=== PATIENT | female | born 1995 | race Caucasian/White ===

== ENCOUNTER 2023-02-25 15:07 | Outpatient (CLI) | payer MEDICAID, SELFPAY ==
--- NOTE | 2023-02-25 | DI.US_ITS ---
Exam(s) US OB 1ST TRIMESTER EXAM: US OB 1ST TRIMESTER CLINICAL HISTORY: ,Z32.01,EARLY COMPLICATIONS,? ECTOPIC. COMPARISON: No exams were available for comparison TECHNIQUE: Transabdominal Transvaginal first trimester obstetrical ultrasound performed. FINDINGS: Sonographic images demonstrate a cystic structure within the endometrium which could be a gestational sac. Based on gestational sac measurements, the age would be less than 5 weeks. A yolk sac and pole are not seen at this time. There is a small amount of free fluid in the cul-de-sac. Pelvic Measurments Uterus: 10 x 5.8 x 8.2 cm The endometrial stripe is thickened and mildly heterogeneous. There are few smaller anechoic spaces within the endometrial stripe. Rt Ovary: 2.6 x 1.5 x 2.8 cm Lt Ovary: 3.3 x 2 x 2.4 cm Both ovaries appear sonographically normal. There is blood flow seen to both ovaries. No adnexal masses are seen. IMPRESSION: 1. There appears to be an intrauterine gestational sac. Based on the sac size, the age is less than 5 weeks. Please correlate with the patient's beta HCG levels. A follow-up obstetrical ultrasound in 1-2 weeks is recommended to assess viability. 2. Small amount of free fluid in the pelvis. 3. No evidence of an adnexal mass. DATA REPOSITORY:
== END 2023-02-25 15:27 ==
PROVIDERS: Visit Provider Advanced Practice Midwife
DX: Z36.87 Encounter for antenatal screening for uncertain dates (principal)
CPT/HCPCS: 76801

== ENCOUNTER 2023-07-04 16:43 | Emergency (ER) | payer MEDICAID, SELFPAY ==
[2023-07-04] VITALS (24 sets, daily range): BP systolic 85–140; BP diastolic 32–76; PULSE 59–87; RESP 12–28; TEMP 36.9–37.2; O2SAT 98–100
[2023-07-04] MEDS: Normal Saline 1,000 ML 1000 ML IV (17:17)
[2023-07-04] MEDS: Ondansetron 4 MG/2 ML VIAL IVP (17:18)
[2023-07-04 17:25] LABS: Abs Immature Grans 0.02 10^3/uL (0.0-0.06); Absolute Basophil Count 0.03 10^3/uL (0.0-0.2); Absolute Eosinophil Count 0.05 10^3/uL (0.0-0.7); Absolute Lymphocyte Count 1.29 10^3/uL (1.2-3.4); Absolute Monocyte Count 0.67 10^3/uL (0.1-0.8); Absolute Neutrophil Count 4.11 10^3/uL (1.2-6.7); Basophils % 0.5; Eosinophils % 0.8; HCT 33.7 % (36.0-46.0); HGB 11.2 g/dL (11.2-15.7); Immature Grans % 0.3; Lymphocytes % 20.9; MCH 26.7 pg (27.0-33.0); MCHC 33.2 % (32.0-36.0); MCV 80 fL (80-95); MPV 9.3 fL (8.0-11.0); Monocytes % 10.9; Neutrophils % 66.6; Platelet Count 185 10^3/uL (130-400); RDW 12.9 % (11.7-14.6); RDW-SD 36.8 fL; WBC 6.17 10^3/uL (4.4-10.8)
[2023-07-04 17:45] LABS: ALT 15 U/L (14-59); AST 15 U/L (15-37); Albumin 2.8 g/dL (3.4-5.0); Alkaline Phosphatase 82 U/L (46-116); Anion Gap 10.2 mmol/L (3-11); BUN 5 mg/dL (7-18); Bilirubin, Total 0.2 mg/dL (0.2-1.0); CO2 23.8 mmol/L (21.0-32.0); CREATININE 0.6 mg/dL (0.55-1.02); Chloride 103 mmol/L (98-107); Estimated GFR 126.87 (mL/min/1.73m2); Glucose 90 mg/dL (74-106); Magnesium 1.7 mg/dL (1.8-2.4); Potassium 3.5 mmol/L (3.5-5.1); Sodium 137 mmol/L (136-145); Total Protein 6.7 g/dL (6.4-8.2)
--- NOTE | 2023-07-04 18:50 | W.ED.GENAD ---
Discharge Plan Disposition Patient Disposition: Home Condition: Good Discharge Details Clinical Impression: Vomiting affecting Primary Care Provider: Unknown,Unknown ED Provider: Deedee Moya Home Meds and New Rx's Prescriptions: New ondansetron 4 mg tablet,disintegrating 4 mg PO Q8H PRNQty: 6 0RF No Action 1 mg Tablet 1 tab PO DAILY Discharge Instructions Instructions: Acute Nausea and Vomiting (ED) Additional Instructions: You can take zofran up to every 8 hours as needed for vomiting. Call your primary care doctor tomorrow to schedule an appointment to follow up on your visit today. Call your VENDING MACHINE REPAIRER tomorrow to check in and discuss your visit to the ED. Return to the emergency department for new or worsening symptoms, including inability to keep down fluids, lightheadedness, decreased movement, or if you have any other concerns. Medical Decision Making 27yo previously healthy female 23w gestation levy uncomplicated follows with [facility] VENDING MACHINE REPAIRER presenting for acute nausea vomiting; 30 minutes prior to arrival felt nauseated and then vomited three times in a row, the last time with streaks of bright red blood. Vital signs and physical exam reassuring on arrival, no abdominal or uterine tenderness. FHR 150's. Low suspicion for acute intrabdominal process, would not pursue imaging at this time given reassuring exam. Reassuring FHT, vomiting for less than a hour, no indication for non-stress testing. Given 1L IVFB and IV zofran. Labs reviewed as below, CBC & CMP reassuring, slightly low magnesium. PO challenged; on reassessment well appearing with reassuring vital signs, has tolerated PO. Appropriate for discharge home to followup with PCP. Discharged home; discharge instructions including return precautions were reviewed with patient who verbalized understanding. All questions were answered and they are in full agreement with the plan. Lab Data Lab results reviewed: Yes I reviewed the patient's lab results. Labs: Laboratory Tests Range/Units 07/04/23 07/04/23 17:10 17:10 WBC (4.4-10.8) 10^3/uL 6.17 RBC (3.93-5.22) 10^6/uL 4.20 Hgb (11.2-15.7) g/dL 11.2 Hct (36.0-46.0) % 33.7 L MCV (80-95) fL 80 MCH (27.0-33.0) pg 26.7 L MCHC (32.0-36.0) % 33.2 RDW (11.7-14.6) % 12.9 Plt Count (130-400) 10^3/uL 185 MPV (8.0-11.0) fL 9.3 Immature Gran % 0.3 Neutrophils % 66.6 Lymphocytes % 20.9 Monocytes % 10.9 Eosinophils % 0.8 Basophils % 0.5 Nucleated RBC % (0.0-0.3) % 0.0 Absolute Neutrophils (1.2-6.7) 10^3/uL 4.11 Absolute Lymphocytes (1.2-3.4) 10^3/uL 1.29 Absolute Monocytes (0.1-0.8) 10^3/uL 0.67 Absolute Eosinophils (0.0-0.7) 10^3/uL 0.05 Absolute Basophils (0.0-0.2) 10^3/uL 0.03 Sodium (136-145) mmol/L 137 Potassium (3.5-5.1) mmol/L 3.5 Chloride (98-107) mmol/L 103 Carbon Dioxide (21.0-32.0) mmol/L 23.8 Anion Gap (3-11) mmol/L 10.2 BUN (7-18) mg/dL 5 L Creatinine (0.55-1.02) mg/dL 0.6 Est GFR (CKD-EPI 2020) (mL/min/1.73m2) 126.87 Glucose (74-106) mg/dL 90 Calcium (8.5-10.1) mg/dL 9.0 Magnesium (1.8-2.4) mg/dL 1.7 L Total Bilirubin (0.2-1.0) mg/dL 0.2 AST (15-37) U/L 15 ALT (14-59) U/L 15 Alkaline Phosphatase (46-116) U/L 82 Total Protein (6.4-8.2) g/dL 6.7 Albumin (3.4-5.0) g/dL 2.8 L HPI General Date/Time Provider Initiated Documentation: 07/04/23 16:48. Limitations to Documentation: no limitations. Information obtained by: patient. HPI Narrative: 27yo previously healthy female 23w gestation levy unocomplicated follows with [facility] VENDING MACHINE REPAIRER presenting for acute nausea vomiting. 30 minutes prior to arrival felt nauseated and then vomited three times in a row, the last time with streaks of bright red blood. No abdominal pain. Bagel for breakfast and spaghetti for lunch. No vaginal bleeding or leaking, no uterine contractions. Feeling the baby move, no change in movement. She is otherwise in her usual state of health with no fevers, chills, rash, chest pain, dysuria, hematuria, or other concerns. Related Data Home Medications Medication Instructions Recorded Confirmed ondansetron 4 mg disintegrating 4 mg PO Q8H PRN #6 tabs 07/04/23 tablet [id number] 1 mg 1 tab PO DAILY 07/04/23 07/04/23 tablet Previous Rx's Medication Instructions Recorded ondansetron 4 mg disintegrating 4 mg PO Q8H PRN #6 tabs 07/04/23 tablet Allergies Allergy/AdvReac Type Severity Reaction Status Date / Time Penicillins Allergy Hives Unverified 07/04/23 16:51 Sulfa (Sulfonamide Allergy Hives Unverified 07/04/23 16:51 Antibiotics) General Stated Complaint: Nausea/Vomit/Diar AIDE: 3 Review of Systems Narrative: see HPI PFSH All Active Problems (Updated 07/04/23 @ 19:34 by Deedee Moya MD) Vomiting affecting (Acute) Social History Smoking/Tobacco Use Status: Never Smoking risk assessment performed?: Yes Alcohol Intake: never Drug use: Never Substance use type: does not use Housing: house Do you feel safe at home: Yes Do you feel safe in your relationship?: Yes Exam Narrative Exam Narrative: General: Alert, well appearing, well nourished, tearful Head: Normocephalic, atraumatic Neck: Trachea midline, Neck supple. ENT: MMM. No oropharygeal lesions or exudate. Cardiac: RRR, no murmurs appreciated Resp: No respiratory distress. CTAB. Abd: Soft, non-distended, nontender. Gravid, fundus palpable 4cm about umbilicus, no contractions palpate. : No suprapubic tenderness. Extremities: No deformities. No peripheral edema. Neurologic: GCS 15. Moves all extremities freely against gravity Course Vital Signs Vital signs: Vital Signs Temperature 37.2 C 07/04/23 16:47 Pulse 87 07/04/23 16:47 Respiratory Rate 20 07/04/23 16:47 Blood Pressure 140/76 07/04/23 16:47 Pulse Oximetry 99 07/04/23 16:47 Temperature 37.2 C 07/04/23 16:47 Temperature Source Skin 07/04/23 16:47 Pulse 79 07/04/23 17:01 Pulse 84 07/04/23 17:40 Respiratory Rate 27 H 07/04/23 18:30 Respiratory Effort Normal, Non-Labored 07/04/23 16:52 Blood Pressure 119/53 L 07/04/23 17:01 Blood Pressure Mean 73 07/04/23 17:01 Blood Pressure Position Sitting 07/04/23 16:47 Pulse Oximetry 98 07/04/23 18:30 Oxygen Delivery Method Room Air 07/04/23 16:47 Oxygen Flow Rate 0 07/04/23 16:47 Pain Level 0 07/04/23 16:47 Lab/Test Results Lab/Test Results: Laboratory Tests Range/Units 07/04/23 07/04/23 17:10 17:10 WBC (4.4-10.8) 10^3/uL 6.17 RBC (3.93-5.22) 10^6/uL 4.20 Hgb (11.2-15.7) g/dL 11.2 Hct (36.0-46.0) % 33.7 L MCV (80-95) fL 80 MCH (27.0-33.0) pg 26.7 L MCHC (32.0-36.0) % 33.2 RDW (11.7-14.6) % 12.9 Plt Count (130-400) 10^3/uL 185 MPV (8.0-11.0) fL 9.3 Immature Gran % 0.3 Neutrophils % 66.6 Lymphocytes % 20.9 Monocytes % 10.9 Eosinophils % 0.8 Basophils % 0.5 Nucleated RBC % (0.0-0.3) % 0.0 Absolute Neutrophils (1.2-6.7) 10^3/uL 4.11 Absolute Lymphocytes (1.2-3.4) 10^3/uL 1.29 Absolute Monocytes (0.1-0.8) 10^3/uL 0.67 Absolute Eosinophils (0.0-0.7) 10^3/uL 0.05 Absolute Basophils (0.0-0.2) 10^3/uL 0.03 Sodium (136-145) mmol/L 137 Potassium (3.5-5.1) mmol/L 3.5 Chloride (98-107) mmol/L 103 Carbon Dioxide (21.0-32.0) mmol/L 23.8 Anion Gap (3-11) mmol/L 10.2 BUN (7-18) mg/dL 5 L Creatinine (0.55-1.02) mg/dL 0.6 Est GFR (CKD-EPI 2020) (mL/min/1.73m2) 126.87 Glucose (74-106) mg/dL 90 Calcium (8.5-10.1) mg/dL 9.0 Magnesium (1.8-2.4) mg/dL 1.7 L Total Bilirubin (0.2-1.0) mg/dL 0.2 AST (15-37) U/L 15 ALT (14-59) U/L 15 Alkaline Phosphatase (46-116) U/L 82 Total Protein (6.4-8.2) g/dL 6.7 Albumin (3.4-5.0) g/dL 2.8 L
== END 2023-07-04 19:58 | disposition home or self-care (01) ==
PROVIDERS: Emergency Provider Student in an Organized Health Care Education/Training Program
DX: O21.2 Late vomiting of pregnancy; Z3A.23 23 weeks gestation of pregnancy
CPT/HCPCS: 80053; 96361; 96374; 99284; 83735; 85025; J2405

== ENCOUNTER 2023-08-09 08:04 | Emergency (ER) | payer MEDICAID, SELFPAY ==
--- NOTE | 2023-08-09 08:00 | RT.EKG_ITS ---
APPROVED REPORT Exam: Resting ECG Reason for Exam: Chest pain Patient Location: E HR:85 bpm ECG Measurements Heart Rate 85 AXIS DC 100 P 40 QRSd 78 QRS 59 QT 349 T 17 QTc 415 Conclusion Sinus rhythm rate 85 normal axis no acute ischemic change
[2023-08-09 08:08] VITALS: BP 142/79; PULSE 91; RESP 18; TEMP 37.5; O2SAT 100
[2023-08-09 08:13] VITALS: RESP 20
--- NOTE | 2023-08-09 08:25 | ED.GENADUL_ITS ---
Discharge Plan Disposition Patient Disposition: Home Condition: Stable Discharge Details Clinical Impression: Back pain, Chest pain Primary Care Provider: Nic Jules ED Provider: Ronaldo Russell Home Meds and New Rx's Prescriptions: No Action 1 mg Tablet 1 tab PO DAILY ondansetron 4 mg tablet,disintegrating 4 mg PO Q8H PRNQty: 6 0RF Discharge Instructions Additional Instructions: continue tylenole as needed for pain please call today to schedule follow up appointment with OB return to ED with severe pain, cramping or bleeding. Medical Decision Making Emergent evaluation of chest and back pain during . Initial differential includes musculoskeletal pain, cardiomyopathy, less likely ACS, less likely aortic pathology. EKG: Sinus 85 normal axis, no acute ischemic changes no priors for comparison Initial plan for lab work, telemetry monitoring. Blood pressure slightly elevated, will continue to monitor and evaluate for preeclampsia. 0945: Reviewed the patient's lab work. She has no significant anemia, her electrolytes are stable. Her BNP is negative. Her troponin is negative. Using adjusted D-dimer the patient risk for PE or aortic pathology is not significant. She reports that her chest pain is resolved, she is still having some back pain. I recommend heat to this area. I have low suspicion that this is a symptom of labor. I recommend that she follow-up with her AIRPLANE INSPECTOR for further management given her stage of . Medical Records Medical records reviewed: Yes I reviewed the patient's medical records. Lab Data Lab results reviewed: Yes I reviewed the patient's lab results. ECG Data Attestation: I personally reviewed and interpreted this ECG (s) as follows: Prior ECG tracings: not available for review HPI General Date/Time Provider Initiated Documentation: 08/09/23 08:10 . Limitations to Documentation: no limitations . Information obtained by: patient . HPI Narrative: 27-year-old female G2, P1 at 29 weeks presents for evaluation of chest and back pain. She reports that she has been having back pain. Localizes to the lower back, does not radiate. She states that it has been intermittent but this morning it has been constant. She reports that she also started having chest pain this morning. She reports the pain feels like a pressure. She has some slight shortness of breath. The chest pain does not radiate to her back. She is not having any nausea or vomiting. She denies any abdominal cramping or pain. Denies any vaginal bleeding or discharge. Denies any dysuria. She reports that she has not had any complications during this . She is followed by [facility] [place]. Related Data Home Medications Medication Instructions Recorded Confirmed ondansetron 4 mg disintegrating 4 mg PO Q8H PRN #6 tabs 07/04/23 tablet [id number] 1 mg 1 tab PO DAILY 07/04/23 07/04/23 tablet Previous Rx's Medication Instructions Recorded ondansetron 4 mg disintegrating 4 mg PO Q8H PRN #6 tabs 07/04/23 tablet Allergies Allergy/AdvReac Type Severity Reaction Status Date / Time Penicillins Allergy Hives Unverified 07/04/23 16:51 Sulfa (Sulfonamide Allergy Hives Unverified 07/04/23 16:51 Antibiotics) General Stated Complaint: Chest Pain AIDE: 3 PFSH All Active Problems (Updated 08/09/23 @ 09:42 by Ronaldo Russell MD) Chest pain (Acute) Back pain (Acute) Social History Smoking/Tobacco Use Status: Never Smoking risk assessment performed?: Yes Alcohol Intake: never Drug use: Never Substance use type: does not use Housing: house Do you feel safe at home: Yes Do you feel safe in your relationship?: Yes Exam Narrative Exam Narrative: Review of Systems: All systems reviewed & are unremarkable except as noted in HPI and below: CONSTITUTIONAL: Alert and oriented Well-developed, tearful HEENT: NACT EYES: PERRL, no conjunctival injection NOSE nares patent MOUTH Moist MM NECK: Symmetric, trachea midline, No thyromegaly CVS: RRR, No murmurs or gallops. Peripheral pulses 2+ and equal in all extremities Brisk capillary refill in all extremities. No peripheral edema No chest wall tenderness RESP: Unlabored respiratory effort, Clear to auscultation bilaterally No wheezes rales or rhonchi GI: Soft, Nontender, gravid abdomen FH MSK: Extremities with full range of motion, no deformity or TTP SKIN: Warm, Dry. No rashes or lesions. NEURO: No focal neurologic deficits. Course Vital Signs Vital signs: Vital Signs Temperature 37.5 C 08/09/23 08:08 Pulse 91 H 08/09/23 08:08 Respiratory Rate 18 08/09/23 08:08 Blood Pressure 142/79 H 08/09/23 08:08 Pulse Oximetry 100 08/09/23 08:08 Temperature 37.5 C 08/09/23 08:08 Temperature Source Temporal Artery Scan 08/09/23 08:08 Pulse 91 H 08/09/23 08:08 Respiratory Rate 20 08/09/23 08:13 Respiratory Effort Short of Breath 08/09/23 08:13 Blood Pressure 142/79 H 08/09/23 08:08 Pulse Oximetry 100 08/09/23 08:08 Oxygen Delivery Method Room Air 08/09/23 08:08 Oxygen Flow Rate 0 08/09/23 08:08 Pain Level 8 08/09/23 08:08
[2023-08-09 08:30] LABS: Abs Immature Grans 0.04 10^3/uL (0.0-0.06); Absolute Basophil Count 0.03 10^3/uL (0.0-0.2); Absolute Eosinophil Count 0.08 10^3/uL (0.0-0.7); Absolute Lymphocyte Count 1.41 10^3/uL (1.2-3.4); Absolute Neutrophil Count 7.13 10^3/uL (1.2-6.7); Basophils % 0.3; Eosinophils % 0.9; HCT 34.9 % (36.0-46.0); HGB 11.6 g/dL (11.2-15.7); Immature Grans % 0.4; Lymphocytes % 15.2; MCH 26.4 pg (27.0-33.0); MCHC 33.2 % (32.0-36.0); MCV 80 fL (80-95); MPV 9.7 fL (8.0-11.0); Monocytes % 6.5; Neutrophils % 76.7; Platelet Count 187 10^3/uL (130-400); RBC 4.39 10^6/uL (3.93-5.22); RDW 12.7 % (11.7-14.6); RDW-SD 36.4 fL; WBC 9.29 10^3/uL (4.4-10.8)
[2023-08-09 08:52] LABS: Bilirubin Negative (Negative); Blood Negative (Negative); Clarity Sl Cloudy (Clear); Glucose Negative (Negative); Ketones Negative (Negative); Leukocyte Esterase Trace (Negative); Nitrite Negative (Negative); Urobilinogen 0.2 mg/dL (Up to 0.2)
[2023-08-09 08:53] LABS: ALT 16 U/L (14-59); AST 14 U/L (15-37); Albumin 2.7 g/dL (3.4-5.0); Alkaline Phosphatase 98 U/L (46-116); Anion Gap 8.8 mmol/L (3-11); BUN 6 mg/dL (7-18); Bilirubin, Total 0.2 mg/dL (0.2-1.0); CO2 24.2 mmol/L (21.0-32.0); CREATININE 0.7 mg/dL (0.55-1.02); Calcium 9.4 mg/dL (8.5-10.1); Chloride 101 mmol/L (98-107); Estimated GFR 122.25 (mL/min/1.73m2); Glucose 89 mg/dL (74-106); Magnesium 1.7 mg/dL (1.8-2.4); NT-proBNP 47 pg/mL (<300); Potassium 3.9 mmol/L (3.5-5.1); Sodium 134 mmol/L (136-145)
[2023-08-09 08:55] LABS: Troponin I < 50 ng/L (<or=60)
[2023-08-09 09:00] LABS: Bacteria Few HPF (Negative); Crystals Negative HPF (Negative); Epithelial Cells Many HPF (Negative); Mucus Trace (Negative); RBC Negative HPF (0-2)
[2023-08-09 09:01] LABS: C & S Indicated? No/Sq. Contamination; Casts Negative LPF (Negative)
[2023-08-09 09:02] LABS: D-Dimer 541 ng/mlFEU (<500)
[2023-08-09 09:48] VITALS: BP 124/57; PULSE 78; RESP 20; O2SAT 98
== END 2023-08-09 09:49 | disposition home or self-care (01) ==
PROVIDERS: Emergency Provider Emergency Medicine; PCP Naturopath
DX: O26.893 Other specified pregnancy related conditions, third trimester (principal); R07.9 Chest pain, unspecified; R06.2 Wheezing; Z3A.29 29 weeks gestation of pregnancy
CPT/HCPCS: 36415; 80053; 93005; 99283; 81003; 81015; 83735; 83880; 84484; 85025; 85379; 93010

== ENCOUNTER 2023-09-08 09:12 | Outpatient (CLI) | payer MEDICAID, SELFPAY ==
[2023-09-08 10:19] LABS: HCT 33.9 % (36.0-46.0); MCH 26.1 pg (27.0-33.0); MCHC 32.4 % (32.0-36.0); MCV 81 fL (80-95); MPV 9.4 fL (8.0-11.0); Platelet Count 200 10^3/uL (130-400); RBC 4.21 10^6/uL (3.93-5.22); RDW 15.4 % (11.7-14.6); RDW-SD 44.1 fL; WBC 9.32 10^3/uL (4.4-10.8)
[2023-09-08] MEDS: Acetaminophen 500 MG TAB PO (10:31)
[2023-09-08 10:44] LABS: Fetal Fibronectin Negative (Negative)
[2023-09-08 11:01] VITALS: BP 131/74; PULSE 100; TEMP 37
[2023-09-08] MEDS: oxyCODONE 5 MG TAB PO (11:40)
--- NOTE | 2023-09-08 11:43 | W.OBNST ---
Date of service: 09/08/23 Time of Service: 17:51 NST Evaluation Reason for NST Reasons for Nonstress Test: LABOR Reason for NST Other: R/O labor Gestational Age Gestational Age in Weeks and Days: 33 Weeks and 2Days Test and Monitor Explained Test/Monitor Explained: Test Explained, Monitor Explained and Patient Verbalized Understanding Vital Signs Blood Pressure: 131/74 Pulse: 100 Temperature: 98.6 F Urine Results Urine Protein: Negative Urine Ketones: Negative Urine Glucose: Negative Urine Blood: Negative NST Information Time on Monitor: 09:15 NST Interventions: PO Hydration NST Evaluation Patient States Movement: Present FHR Baseline: 150 Variability: Moderate 6-25 bpm Accelerations: 15x15 NST Results: Reactive Note Ultrasound Done: N/A. NST Note Note: Pt presented with onset of painful sharp pain originating in her R inguinal region with radiation to her pubic symphyis. She reports it occurs every couple of minutes. Not associated with loss of fluid or vaginal bleeding. FHR tracing category1. Labs including FFN nl. PE: no CVA tenderness. No contractions on external toco. Cervix closed, long medium consistency, 10:00 No reponse to 500mg Acetaminophen PO. 11:20 Oxycodone 5mg PO. 13:00. Pain improved with application of heat and additional medication. Pt instructed to follow up with OB providers at [facility]. NST Reviewed and Verified by: Clau Reyna
[2023-09-08 11:49] VITALS: BP 131/74; PULSE 100; TEMP 37
== END 2023-09-08 13:51 ==
LOC: BCD 09:15 → OBS 09:41
PROVIDERS: PCP Naturopath; Visit Provider Obstetrics & Gynecology Gynecology
DX: O47.03 False labor before 37 completed weeks of gestation, third trimester (principal); Z3A.33 33 weeks gestation of pregnancy
CPT/HCPCS: 85027; 86850; 86900; 86901; 59025; 82731; 87086

== ENCOUNTER 2023-09-28 15:34 | Observation (INO) | payer MEDICAID, SELFPAY ==
[2023-09-28 15:37] VITALS: BP 138/79; PULSE 108; RESP 18; TEMP 36.7; O2SAT 98
--- NOTE | 2023-09-28 15:48 | W.ED.GENAD ---
Discharge Plan Disposition Patient Disposition: Admit to [facility] Condition: Stable Discharge Details Clinical Impression: Back pain affecting in third trimester Admit Date/Time: 09/28/23 16:01 Admit Provider: Clau Reyna Attending Provider: Clau Reyna Primary Care Provider: Nic Jules ED Provider: Chiqui De La Rosa Medical Decision Making 27-year-old male 2 para 1 approximately 36 days presents to the ER with left lower lumbar pain and some lower abdominal pressure which she reports is always there. She has no radiation into her leg. Denies recent heavy lifting or known injury. Reports some white mucousy discharge denies leaking of fluids. She reports that this pain began approximate hour prior to arrival. She normally gets her MACHINE OPERATOR HOP PICKER care at [facility] in [place] she did speak to the triage nurse hydraulic elevator constructor instructed her to be seen there however she was too uncomfortable to drive an hour in the car. She has felt the baby move. legal stenographer paged and lidocaine patch ordered. 1559: Spoke with Dr. Reyna who agrees to see patient up in L&D triage for a eval, will re-evaluate patient in ED if needed. T's 140. Patient transported up to the birthing center via wheelchair with staff nurse icu resource team. Medical Records Medical records reviewed: Yes I reviewed the patient's medical records. Medical records narrative: Seen on 09-08-23 by MACHINE OPERATOR HOP PICKER, seen in ED for 08/09/23. HPI General Mode of arrival: ambulatory. Date/Time Provider Initiated Documentation: 09/28/23 15:47. Limitations to Documentation: no limitations. Information obtained by: patient, RN notes reviewed and old records reviewed. History of Present Illness described as moderate, with intensity rated at 8. Quality is described as dull and constant, and is localized to the back, abdomen and pelvis. Patient abdomen and distal. Patient started experiencing this hour(s) (1) and it has been constant. No relieving factors improve symptom(s), Patient did receive the following treatments prior to arrival, NSAID (Tylenol 45 min FIRER TUNNEL KILN) HPI Narrative: 27-year-old male 2 para 1 approximately 36 days presents to the ER with left lower lumbar pain and some lower abdominal pressure which she reports is always there. She has no radiation into her leg. Denies recent heavy lifting or known injury. Reports some white mucousy discharge denies leaking of fluids. She reports that this pain began approximate hour prior to arrival. She normally gets her MACHINE OPERATOR HOP PICKER care at [facility] in [place] she did speak to the triage nurse hydraulic elevator constructor instructed her to be seen there however she was too uncomfortable to drive an hour in the car. She has felt the baby move. Related Data Home Medications Medication Instructions Recorded Confirmed ondansetron 4 mg disintegrating 4 mg PO Q8H PRN #6 tabs 07/04/23 09/28/23 tablet [id number] 1 mg 1 tab PO DAILY 07/04/23 09/28/23 tablet Previous Rx's Medication Instructions Recorded ondansetron 4 mg disintegrating 4 mg PO Q8H PRN #6 tabs 07/04/23 tablet Allergies Allergy/AdvReac Type Severity Reaction Status Date / Time Penicillins Allergy Hives Unverified 09/28/23 15:39 Sulfa (Sulfonamide Allergy Hives Unverified 09/28/23 15:39 Antibiotics) General Stated Complaint: MACHINE OPERATOR HOP PICKER AIDE: 3 Review of Systems All systems reviewed & are unremarkable except as noted in HPI and below Gastrointestinal Gastrointestinal: Reports constipation and Reports diarrhea Genitourinary Genitourinary: Reports as per HPI, Denies abnormal vaginal bleeding, Denies dysuria, Reports pelvic pain, Reports flank pain and Reports vaginal discharge (White mucous) Musculoskeletal Musculoskeletal: Reports as per HPI, Reports abnormal gait and Reports back pain Neurologic Neurologic: Reports abnormal gait PFSH All Active Problems (Updated 09/28/23 @ 16:20 by Chiqui De La Rosa NP) Back pain affecting in third trimester (Acute) Pelvic pain during (Acute) Social History Smoking/Tobacco Use Status: Never Smoking risk assessment performed?: Yes Alcohol Intake: never Drug use: Never Substance use type: does not use Housing: house Do you feel safe at home: Yes Do you feel safe in your relationship?: Yes Exam Narrative Exam Narrative: Constitutional: Alert and oriented x3. Appears stated age. Normal body habitus. Head: Normocephalic, no trauma. Eyes: Pupils PERRL, Red reflex noted, EOM's intact. Eyelids symmetrical without lesions, discharge, or swelling. Chest: Mildly tachycardic upon arrival a rate of 108, normal S1, S2, distal pulses intact. Resp: Lungs clear to auscultation bilaterally, no wheezes, rales, or rhonchi. Abdomen: Consistent with a 36 gravidarum , reports anterior lower pelvic pressure. Musculoskeletal: tandem gait, 5/5 strength to all four extremities. Does have some left lower lumbar tenderness with palpation, also some mid lower lumbar tenderness with palpation. No crepitus step-off or signs of trauma noted. Skin: No suspicious rashes or lesions. Capillary refill less than 2 sec. no pitting edema noted to bilateral lower extremities. Course Vital Signs Vital signs: Vital Signs Temperature 36.7 C 09/28/23 15:37 Pulse 108 H 09/28/23 15:37 Respiratory Rate 18 09/28/23 15:37 Blood Pressure 138/79 09/28/23 15:37 Pulse Oximetry 98 09/28/23 15:37 Temperature 36.7 C 09/28/23 15:37 Temperature Source Temporal Artery Scan 09/28/23 15:37 Pulse 108 H 09/28/23 15:37 Respiratory Rate 18 09/28/23 15:37 Respiratory Effort Normal, Non-Labored 09/28/23 15:40 Blood Pressure 138/79 09/28/23 15:37 Blood Pressure Position Sitting 09/28/23 15:37 Pulse Oximetry 98 09/28/23 15:37 Oxygen Delivery Method Room Air 09/28/23 15:37 Oxygen Flow Rate 0 09/28/23 15:37
[2023-09-28] MEDS: Lidocaine 5% Patch 1 PATCH TP (15:50)
[2023-09-28 16:26] VITALS: BP 120/64; PULSE 68; RESP 20; TEMP 37
[2023-09-28 16:33] VITALS: BP 120/64; PULSE 70
[2023-09-28 17:45] LABS: Bilirubin Negative (Negative); Blood Negative (Negative); Clarity Turbid (Clear); Glucose Negative (Negative); Ketones Trace mg/dL (Negative); Leukocyte Esterase Negative (Negative); Nitrite Negative (Negative); Specific Gravity >= 1.030 (1.005-1.025); pH 6.5 (5-8)
[2023-09-28 17:46] LABS: Bacteria Moderate HPF (Negative); C & S Indicated? C&S Done As Ordered; Casts Negative LPF (Negative); Crystals Moderate Amorphous HPF (Negative); Epithelial Cells Few HPF (Negative); Mucus Negative (Negative); RBC Negative HPF (0-2)
== END 2023-09-28 18:35 | disposition home or self-care (01) ==
LOC: ER 16:01 → OBS 16:09
PROVIDERS: Admitting Provider Obstetrics & Gynecology Gynecology; Emergency Provider Registered Nurse Emergency; PCP Naturopath; Visit Provider Obstetrics & Gynecology Gynecology
DX: O26.893 Other specified pregnancy related conditions, third trimester (principal); M54.9 Dorsalgia, unspecified; Z3A.36 36 weeks gestation of pregnancy
CPT/HCPCS: 81003; 81015; 87086; G0378

== ENCOUNTER 2023-10-17 07:11 | Inpatient (IN) | payer MEDICAID, SELFPAY ==
[2023-10-17] VITALS (16 sets, daily range): BP systolic 108–143; BP diastolic 56–93; PULSE 68–179; RESP 16; TEMP 36.5–36.8; O2SAT 98–99
--- NOTE | 2023-10-17 09:05 | HPE_ITS ---
Date of service: 10/17/23 Time of Service: 08:00 Assessment and Plan Assessment and plan (1) Premature rupture of membranes: Status: Acute Assessment and plan: Pt is grossly ruptured with signs of early labor. Obtained records from [facility]. Prior she had no care. She says the FOB was a hippie and she was in [place] at the time. She ended up going to the hospital after laboring at home for a while. (2) Positive GBS test: Status: Acute Assessment and plan: Pt is aware of the need for abx for GBS prophylaxis. Her mom reports that her PCN allergy was when she was a baby and it was only a rash so will plan on Kefzol. OB-HPI Labor/Delivery History of Present Illness Reason for Visit: 38Wks Water Broke Chief Complaint: Suspected Rupture of Membranes , Associated Signs and Symptoms of Suspected ROM: gush of fluid. Comments: Pt says she broke her water at 6:15 this am with a big gush of fluid. She came here because it is closer than [facility] and she was scared. She says she got her care at [facility] because the father of the baby lives there but they have since split up and he is not involved. She was happy with her care there though so continued with them. She says she had a GBS swab last week and was told it was positive. Review of Systems Constitutional Constitutional: Reports system reviewed and no additional complaints, except as documented Gastrointestinal Gastrointestinal: Denies nausea and Denies vomiting Genitourinary Genitourinary: Reports system reviewed and no additional complaints, except as documented Musculoskeletal Comments: No regular contractions PFSH All Active Problems (Updated 10/17/23 @ 09:59 by Yenni Nguyen MD) Anemia affecting (Acute) Positive GBS test (Acute) Premature rupture of membranes (Acute) Medical History (Updated 10/17/23 @ 09:59 by Yenni Nguyen MD) History of kidney stones BMI 31.0-31.9,adult initial Ob visit Bicornuate uterus Pelvic pain during Back pain affecting in third trimester Social History Smoking/Tobacco Use Status: Never Smoking risk assessment performed?: Yes Alcohol Intake: never Drug use: Never Substance use type: does not use Housing: house Do you feel safe at home: Yes Do you feel safe in your relationship?: Yes History History 2 Para 1 Hx # Term Pregnancies 1 Multiple births Hx # Pregnancies Ectopic pregnancies AB induced Hx Number of Living Children 1 AB spontaneous Past Pregnancies Del. Date GA/Weeks # Preg Succ Route Wgt Sex Labor Lgth Anesth esia Location [facility] 10/07/14 Yes Female [place] Delivery Date: 10/07/14 Last Updated by: Yenni Nguyen MD No care, labored at home then went to hospital for delivery, got epidural Meds Allergies and Home Medications Allergies Allergy/AdvReac Type Severity Reaction Status Date / Time Penicillins Allergy Hives Unverified 09/28/23 15:39 Sulfa (Sulfonamide Allergy Hives Unverified 09/28/23 15:39 Antibiotics) Home Medications Medication Instructions Recorded Confirmed Type ondansetron 4 mg disintegrating 4 mg PO Q8H PRN #6 tabs 07/04/23 09/28/23 Rx tablet [id number] 1 mg 1 tab PO DAILY 07/04/23 09/28/23 History tablet oxycodone-acetaminophen 5 mg-325 1 tab PO Q6H PRN pain #5 tabs 09/28/23 Rx mg tablet (Percocet) Exam Physical Exam Vital Signs Reviewed: Yes Detailed Labor and Delivery Exam Dilation: 3 Effacement (%): 70 station: -2 Cervix position: mid Consistency: soft Dumas Score: Cervical Points Exam 0 1 2 3 Dilation Closed 1-2cm 3-4 cm 5-6cm Effacement 0-30% 40-50% 60-70% 80% Consistency Firm Medium Soft Station -3 -2 -1,0 +1,+2 Position Posterior Mid Anterior Amniotic Membrane Status: Ruptured Rupture Method: Spontaneous Amniotic Fluid: Clear Comments: Irregular mild contractions Fetus A Heart Rate Baseline: 150 Monitor Accelerations: 15 X 15 Monitor Decelerations: None Variability: Moderate (6-25 BPM) Detailed HEENT Exam Head: Present normocephalic and atraumatic Detailed Abdominal Exam Comments: Gravid, nontender No contractions obviously palpated Detailed Neurological Exam Neurological: Present alert, oriented X3 and CN II-XII intact DetailedPsychiatric Exam Psychiatric: Present normal affect, normal thought process and cooperative Results Results Group Beta Strep: Positive (per patient) Blood Type: O+ Rubella Status: Immune Varicella Immunity: Immune Abnormal Lab Findings: Had 1 abnl value on her 3hr GTT and one that was borderline so she did 1wk of fingersticks that were all normal Ultrasound OB Ultrasound for presentation. Indication: confirm presentation Presentation: Cephalic. Exam complete. Risk Assessment Risk for Shoulder Dystocia Increased Risk?: No Risks Reviewed Risks Reviewed Upon Admission: Yes
[2023-10-17 10:06] LABS: HGB 11.5 g/dL (11.2-15.7); MCH 25.9 pg (27.0-33.0); MCHC 32.9 % (32.0-36.0); MCV 79 fL (80-95); MPV 10.2 fL (8.0-11.0); Platelet Count 215 10^3/uL (130-400); RBC 4.44 10^6/uL (3.93-5.22); RDW 13.7 % (11.7-14.6); RDW-SD 39.2 fL; WBC 9.42 10^3/uL (4.4-10.8)
[2023-10-17] MEDS: ceFAZolin 2 GM/50 ML BAG IVPB (10:07)
--- NOTE | 2023-10-17 11:24 | W.PM.OBNL1 ---
Date of service: 10/17/23 Time of Service: 11:00 Pelvic Exam Dilation: 5 Effacement (%): 70 station: -2 Cervix Position: mid Fetus A Heart Rate Baseline: 150 Presentation: Cephalic Variability: Moderate (6-25 BPM) Categories: Category I Accelerations: 15 X 15 Decelerations: None Assessment and Plan Assessment and plan (1) Normal labor: Status: Acute Assessment and plan: Patient will try nitrous oxide. Will encourage position changes. Objective Abnormal lab results 10/17/23 Range/Units 09:56 Hct 35.0 L (36.0-46.0) % MCV 79 L (80-95) fL MCH 25.9 L (27.0-33.0) pg Temp Pulse Resp BP Pulse Ox 97.9 F 69 16 127/82 98 10/17/23 10:18 10/17/23 11:23 10/17/23 10:18 10/17/23 11:23 10/17/23 10:18 Laboratory Results WBC 9.42 10^3/uL (4.4-10.8) 10/17/23 09:56 RBC 4.44 10^6/uL (3.93-5.22) 10/17/23 09:56 Hgb 11.5 g/dL (11.2-15.7) 10/17/23 09:56 Hct 35.0 % (36.0-46.0) L 10/17/23 09:56 MCV 79 fL (80-95) L 10/17/23 09:56 MCH 25.9 pg (27.0-33.0) L 10/17/23 09:56 MCHC 32.9 % (32.0-36.0) 10/17/23 09:56 RDW 13.7 % (11.7-14.6) 10/17/23 09:56 Plt Count 215 10^3/uL (130-400) 10/17/23 09:56 MPV 10.2 fL (8.0-11.0) 10/17/23 09:56 Vital Signs Reviewed: Yes Subjective Interval history since last seen: Pt reports feeling more uncomfortable with her contractions. Accepts NO for pain management Results Hemoglobin/Hematocrit: Hgb 11.5 g/dL (11.2-15.7) 10/17/23 09:56 Hct 35.0 % (36.0-46.0) L 10/17/23 09:56 Abnormal Lab Findings: Abnormal Labs 10/17/23 09:56 Hct 35.0 L MCV 79 L MCH 25.9 L
--- NOTE | 2023-10-17 13:20 | W.PM.OBNL1 ---
Date of service: 10/17/23 Time of Service: 13:00 Pelvic Exam Dilation: 8 Effacement (%): 80 station: -2 Fetus A Heart Rate Baseline: 150 Assessment and Plan Assessment and plan (1) Normal labor: Status: Acute Assessment and plan: Pt progressing. status reassuring. Will continue with expectant management. Encouraged pt to get out of bed to the ball. Objective Abnormal lab results 10/17/23 Range/Units 09:56 Hct 35.0 L (36.0-46.0) % MCV 79 L (80-95) fL MCH 25.9 L (27.0-33.0) pg Temp Pulse Resp BP Pulse Ox 97.7 F 69 16 127/82 98 10/17/23 12:03 10/17/23 11:23 10/17/23 11:23 10/17/23 11:23 10/17/23 11:23 Laboratory Results WBC 9.42 10^3/uL (4.4-10.8) 10/17/23 09:56 RBC 4.44 10^6/uL (3.93-5.22) 10/17/23 09:56 Hgb 11.5 g/dL (11.2-15.7) 10/17/23 09:56 Hct 35.0 % (36.0-46.0) L 10/17/23 09:56 MCV 79 fL (80-95) L 10/17/23 09:56 MCH 25.9 pg (27.0-33.0) L 10/17/23 09:56 MCHC 32.9 % (32.0-36.0) 10/17/23 09:56 RDW 13.7 % (11.7-14.6) 10/17/23 09:56 Plt Count 215 10^3/uL (130-400) 10/17/23 09:56 MPV 10.2 fL (8.0-11.0) 10/17/23 09:56 Patient ABO/Rh O Positive 10/17/23 09:56 Antibody Screen NEGATIVE 10/17/23 09:56 Vital Signs Reviewed: Yes Subjective Interval history since last seen: Pt feeling increased pelvic pressure and painful contractions. She did not like using the nitrous and is coping ok without it. Results Hemoglobin/Hematocrit: Hgb 11.5 g/dL (11.2-15.7) 10/17/23 09:56 Hct 35.0 % (36.0-46.0) L 10/17/23 09:56 Abnormal Lab Findings: Abnormal Labs 10/17/23 09:56 Hct 35.0 L MCV 79 L MCH 25.9 L
[2023-10-17] MEDS: Hamamelis Leaf/Glycerin 100 EACH BOX PR (17:00)
[2023-10-17] MEDS: Dibucaine 1% 28 GM TUBE (17:02)
--- NOTE | 2023-10-17 17:48 | W.OBDELIVERY ---
Date of service: 10/17/23 Time of Service: 14:00 OB Labor/ Delivery Information Baby A Delivery Delivery Method: Spontaneaous Presentation: Cephalic Cord Description-Baby A: 3 Vessels Amniotic Fluid: Clear Estimated Blood Loss: 200 Delivery Outcome: Liveborn Note: The pt was found to have anterior lip that reduced over the baby's head with 1 push. She quickly brought the head to and delivered the infant's head in PADDY position followed by the shoulders and the rest of the body. The baby was placed on mom's abdomen. After >1min the cord was clamped x2 and cut. Cord blood collected. The placenta delivered with gentle cord traction and fundal massage and appeared intact. Fundus was firm with good hemostasis. Mom and baby stable at time of note. Providers Doctor: Yenni Nguyen Nurse: Kristin Hdz Nurse: Mateo Orlando Labor/Delivery Information Number of Babies in Womb: 1 Group Beta Strep: Positive Antibiotics Administered: Yes Number of Doses of Antibiotics: 1 Rubella Status: Immune Blood Type: O+ Varicella Immunity: Immune Maternal Complications: None Shoulder Dystocia: No Stages of Labor Onset of Labor Date: 10/17/23 Onset of Labor Time: 10:00 Complete Dilatation Date: 10/17/23 Complete Dilatation Time: 13:56 Labor - Stage 1 Duration: 3 hours and 56 minutes ROM Baby A: 10/17/23 ROM Baby A: 06:15 ROM Total Time- Baby A: [id number] Infant Delivery Date-Baby A: 10/17/23 Delivery Time-Baby A: 13:59 Labor Stage 2 Duration: 3 minutes Placenta Delivery Date-Baby A: 10/17/23 Placenta Delivery Time-Baby A: 14:03 Labor-Stage 3 Duration: 4 minutes Total Length of Labor-Baby A: 3 hours and 59 minutes Placenta Cultured: No Placenta Status: Delivered Baby A Gender: Male Gestational Status: Term (39-41.6 wks) Gestational Age in Weeks/Days: 38 Weeks and 6 Days weight: 6 lb 12.82 oz Length-Baby A: 19.5 in Head Circumference-Baby A: 13 in Score-1 Minute Interval(Baby A) Heart Rate-1 minute: 100 BPM or Greater Respiratory Effort- 1 minute: Spontaneous/Strong Cry Muscle Tone-1 minute: Active Movement Reflex Response-1 minute: Prompt Response Color-1 minute: Bluish Hands or Feet Total Score-1 minute: 9 Score-5 Minute Interval(Baby A) Heart Rate- 5 minute: 100 BPM or Greater Respiratory Effort-5 minute: Spontaneous/Strong Cry Muscle Tone-5 minute: Active Movement Reflex Response-5 minute: Prompt Response Color-5 minute: Bluish Hands or Feet Total Score- 5 minute: 9
[2023-10-18 07:30] VITALS: BP 126/84; PULSE 76; RESP 16; TEMP 36.8; O2SAT 97
--- NOTE | 2023-10-18 08:14 | OBPPV_ITS ---
Date of service: 10/18/23 Time of Service: 08:14 Assessment and Plan Assessment and plan (1) examination following vaginal delivery: Status: Acute Assessment and plan: Patient will follow up until 10/21/2023. The plan is to support breast-feeding. (2) Positive GBS test: Status: Acute Subjective Subjective Interval history: day 1 uncomplicated spontaneous vaginal delivery after spontaneous rupture of membranes at term. Patient comments: No complaints (Will remain inpatient until 10/19/2023.) Patient's Mood: Good [place] baby status: Doing well, Nursing well and Strong Bonding Observed Exam Physical Exam Vital signs: Temp Pulse Resp BP Pulse Ox 97.9 F 78 16 123/73 99 10/17/23 18:28 10/17/23 18:28 10/17/23 18:28 10/17/23 18:28 10/17/23 18:28 Vital Signs Reviewed: Yes Constitutional Constitutional: no acute distress HEENT Exam HEENT Exam: Not Done Neck Exam Neck Exam: Normal Respiratory Exam Respiratory Exam: Normal Cardiovascular Exam Cardiovascular Exam: Normal Abdominal Exam Comments: Nontender Fundal Exam Fundus: Below Umbilicus and Firm Rectal Exam Rectal Exam: Not Done Extremities Exam Extremity Exam: Normal Back/Spine/Pelvis Exam Back Exam: Not Done Skin Exam Skin Exam: Not Done Psychiatric Exam Psychiatric Exam: Normal Results Hemoglobin/Hematocrit: Hgb 11.5 g/dL (11.2-15.7) 10/17/23 09:56 Hct 35.0 % (36.0-46.0) L 10/17/23 09:56 Abnormal Lab Findings: Abnormal Labs 10/17/23 09:56 Hct 35.0 L MCV 79 L MCH 25.9 L
[2023-10-18 13:05] VITALS: BP 119/71; PULSE 73; RESP 16; TEMP 36.5; O2SAT 99
[2023-10-18 16:15] VITALS: BP 133/86; PULSE 76; RESP 16; TEMP 36.6; O2SAT 99
[2023-10-18 20:48] VITALS: BP 134/86; PULSE 68; RESP 16; TEMP 36.9; O2SAT 98
[2023-10-19 08:15] VITALS: BP 118/76; PULSE 72; RESP 16; TEMP 36.6; O2SAT 100
[2023-10-19] MEDS: Hamamelis Leaf/Glycerin 100 EACH BOX PR (10:50)
[2023-10-19] MEDS: Dibucaine 1% 28 GM TUBE (10:50)
--- NOTE | 2023-10-19 10:51 | DSE_ITS ---
Date of service: 10/19/23 Time of Service: 10:51 DS: Diagnosis Discharge Diagnosis (1) Positive GBS test: Status: Acute (2) Vaginal delivery: Status: Acute Discharge Plan Disposition Patient Disposition: Home Condition: Good Discharge Details Reason For Visit: Rupture of Membranes Admit Date/Time: 10/17/23 09:42 Admit Provider: Clau Reyna Attending Provider: Yenni Nguyen Primary Care Provider: Nic Jules Hospital Course Hospital Course: [facility] with spontaneous rupture membranes. She had received care at another facility but did not feel that she would be able to reach the facility on time. Spontaneous vaginal delivery of a male infant who will be name Segundo over intact perineum. Normal placenta. She was group B strep positive received 1 dose of penicillin prior to delivery. course was uncomplicated she was discharged home on day #2 successfully breast-feeding. She will use norethindrone 0.35 mg tablet for control. She [facility] Home Meds and New Rx's Prescriptions: No Action oxycodone-acetaminophen [Percocet] 5-325 mg tablet 1 tab PO Q6H MDD 4 PRN (Reason: pain) Qty: 5 0RF 1 mg Tablet 1 tab PO DAILY ondansetron 4 mg tablet,disintegrating 4 mg PO Q8H PRNQty: 6 0RF Discharge Instructions Stand Alone Forms: BC Instructions, BC Post Vaginal Deliver Activity:: Activity as Tolerated Equipment/Supplies:: No Equipment Needed Diet:: As Tolerated Discharge Orders Discharge Orders: Discharge Order (Routine); Ordered 10/19/23 Ordered By: Clau Reyna OB:DS Summary Summary Vaginal Delivery Method: Spontaneaous Episiotomy Description: None Laceration Description: None Laceration Extension: N/A complications OB DS: none Contraception Discussed Contraception Discussed: Yes Contraceptive Plan: Control Pill/Patch, Infant Gender-Baby A: Male weight: 6 lb 12.82 oz Status at Discharge Functional status at discharge: independent ambulation Overall status at discharge: patient is back to baseline Mental Status: mental status grossly normal Speech and Movement: speech and movement normal Mood: congruent mood Affect: normal affect Time Spent with Patient providing and/or coordinating discharge services: Less than 30 minutes Quality:SDOH Health Related Social Needs: No Data to Display Exam Physical Exam Vital signs: Temp Pulse Resp BP Pulse Ox 98.4 F 68 16 134/86 98 10/18/23 20:48 10/18/23 20:48 10/18/23 20:48 10/18/23 20:48 10/18/23 20:48 Vital Signs Reviewed: Yes Constitutional Constitutional: no acute distress Neck Exam Neck Exam: Normal Respiratory Exam Respiratory Exam: Normal Cardiovascular Exam Cardiovascular Exam: Normal Abdominal Exam Abdomen: Other (non-tender) Fundal Exam Fundus: Below Umbilicus and Firm Rectal Exam Rectal Exam: Not Done Extremities Exam Extremity Exam: Normal Back/Spine/Pelvis Exam Back Exam: Normal Skin Exam Skin Exam: Normal Neurological Exam Neurological Exam: Normal Psychiatric Exam Psychiatric Exam: Normal PFSH All Active Problems (Updated 10/19/23 @ 10:51 by Clau Reyna MD) Vaginal delivery (Acute) examination following vaginal delivery (Acute) Normal labor (Acute) Anemia affecting (Acute) Positive GBS test (Acute) Premature rupture of membranes (Acute) Medical History (Updated 10/19/23 @ 10:51 by Clau Reyna MD) History of kidney stones BMI 31.0-31.9,adult initial Ob visit Bicornuate uterus Back pain affecting in third trimester Pelvic pain during Social History Smoking/Tobacco Use Status: Never Smoking risk assessment performed?: Yes Alcohol Intake: never Drug use: Never Substance use type: does not use Housing: house Do you feel safe at home: Yes Do you feel safe in your relationship?: Yes History History 2 Para 2 Hx # Term Pregnancies 2 Multiple births Hx # Pregnancies Ectopic pregnancies AB induced Hx Number of Living Children 2 AB spontaneous Past Pregnancies Del. Date GA/Weeks # Preg Succ Route Wgt Sex Labor Lgth Anesth esia Location Prov Complic 10/07/14 Yes Female [place] 10/17/23 38 No Yes vaginal 6 lb 12 oz Male [facility] Delivery Date: 10/07/14 Last Updated by: Yenni Nguyen MD No care, labored at home then went to hospital for delivery, got epidural Delivery Date: 10/17/23 Last Updated by: Clau Reyna MD care elsewhere. [facility]. Del [facility] closest [facility]. [facility] DS: Data Vitals/I&O Vitals and I&O: Vital Signs Temperature 98.4 F 10/18/23 20:48 Temperature Source Oral 10/18/23 20:48 Pulse 68 10/18/23 20:48 Pulse Rhythm Regular 10/18/23 20:48 Respiratory Rate 16 10/18/23 20:48 Blood Pressure 134/86 10/18/23 20:48 Blood Pressure Mean 102 10/18/23 20:48 Pulse Oximetry 98 10/18/23 20:48 Oxygen Delivery Method Room Air 10/17/23 10:18 Oxygen Flow Rate 0 10/17/23 10:18 Pain Level 0 10/18/23 20:48 Intake & Output 10/18/23 10/18/23 10/19/23 11:59 23:59 11:59 Other: Urine Color Pale Yellow
== END 2023-10-19 11:10 | disposition home or self-care (01) | DRG 807 ==
LOC: ER 09:00 → OBS 09:34
PROVIDERS: Admitting Provider Obstetrics & Gynecology Gynecology; PCP Naturopath; Visit Provider Obstetrics & Gynecology
DX: O42.92 Full-term premature rupture of membranes, unspecified as to length of time between rupture and onset of labor (principal); Z37.0 Single live birth; Z3A.38 38 weeks gestation of pregnancy; O99.824 Streptococcus B carrier state complicating childbirth; O99.02 Anemia complicating childbirth; D64.9 Anemia, unspecified; O34.03 Maternal care for unspecified congenital malformation of uterus, third trimester; Q51.3 Bicornate uterus
CPT/HCPCS: 36415; 85027; 86850; 86900; 86901; J0690